=== PATIENT | female | born 1940 | race Two or more races ===

== ENCOUNTER 2023-05-20 17:26 | Inpatient (IN) | payer OTHER ==
[2023-05-20] MEDS ORDERED: LIDOCAINE 5% TOPICAL PATCH TP ONE (17:56)
[2023-05-20] MEDS ORDERED: ACETAMINOPHEN 1000 MG/100 ML BAG IVPB ONE (17:56)
[2023-05-20] MEDS ORDERED: ACETAMINOPHEN INJECTION 100 ML IVPB ONE (18:32)
[2023-05-20] MEDS ORDERED: LIDOCAINE 5% TOPICAL PATCH ONE (18:36)
[2023-05-20 18:51] LABS: INR 1.2 (0.83-1.09); PROTHROMBIN TIME (PATIENT) 13.9 SEC (9.7-13.0)
[2023-05-20 18:53] LABS: ACTIVATED PTT 29.4 SECONDS (25.2-36.5)
[2023-05-20 18:54] LABS: HEMATOCRIT 33.6 % (32.4-45.2); HEMOGLOBIN 11.1 G/dL (10.7-15.3); MCH 30.4 pg (25.7-33.7); MCHC 33.1 g/dl (32.0-36.0); MEAN CELL VOLUME 91.9 fl (80-96); MEAN PLT VOLUME 10.6 fl (7.5-11.1); RBC 3.66 10^6/uL (3.60-5.2); RDW 15.1 % (11.6-15.6); WHITE BLOOD COUNT 5.6 10^3/uL (4.0-10.8)
[2023-05-20 19:01] LABS: ALBUMIN 3.5 g/dl (3.4-5.0); BLOOD UREA NITROGEN 28.7 mg/dl (7-18); CALCIUM 9.2 mg/dl (8.5-10.1); CREATININE 1.1 mg/dl (0.6-1.3); MAGNESIUM 1.6 mg/dL (1.8-2.4); POTASSIUM 4.4 mmol/L (3.5-5.1); SGOT/AST 30.3 U/L (15-37); SGPT/ALT 22.6 U/L (7-52); TOT PROT 7.5 g/dl (6.4-8.2)
[2023-05-20] MEDS ORDERED: MAGNESIUM SULF 50% (8.12 MEQ/2 ML-1 GM VIAL) IVPB ONE (20:26)
[2023-05-20 21:29] VITALS: BMI 29.5
[2023-05-20] MEDS: ATORVASTATIN CA 20 MG TABLET (FP) PO SCH (21:55)
[2023-05-20] MEDS: LISINOPRIL 20 MG TABLET PO SCH (21:55)
[2023-05-20] MEDS ORDERED: LIDOCAINE PATCH REMOVAL MC SCH (22:00)
[2023-05-20 23:07] LABS: PLATELET ESTIMATE DECREASED
[2023-05-20] MEDS ORDERED: ACETAMINOPHEN 325 MG TABLET (FP) PO PRN (23:45)
[2023-05-21] MEDS: LEVOTHYROXINE NA 25 MCG TABLET (FP) PO SCH (06:42)
[2023-05-21] MEDS ORDERED: glipiZIDE-XL 10 MG TAB.ER.24 (FP) PO SCH (07:00)
[2023-05-21] MEDS ORDERED: ALBUTEROL SO4 2.5/IPRATROPIUM 0.5 INH SOL 3 ML VIAL.NEB. NEB SCH (08:00)
[2023-05-21 08:42] LABS: BLOOD UREA NITROGEN 24.3 mg/dl (7-18); CALCIUM 8.9 mg/dl (8.5-10.1); CREATININE 0.9 mg/dl (0.6-1.3); MAGNESIUM 1.8 mg/dL (1.8-2.4); POTASSIUM 4.5 mmol/L (3.5-5.1)
[2023-05-21] MEDS: amLODIPine BESYLATE 5 MG TABLET (FP) PO SCH (09:19)
[2023-05-21] MEDS: LISINOPRIL 20 MG TABLET PO SCH ×2 (09:19→21:09)
[2023-05-21] MEDS: HYDROCHLOROTHIAZIDE 12.5 MG CAPSULE (FP) PO SCH (09:19)
[2023-05-21] MEDS ORDERED: predniSONE 5 MG TABLET (UD) PO SCH (10:00)
[2023-05-21 11:37] LABS: BASO % 0.7 % (0-2.0); EOS % 1.1 % (0-4.5); HEMATOCRIT 32.6 % (32.4-45.2); HEMOGLOBIN 10.3 GM/dL (10.7-15.3); LYMPH % 58.5 % (8-40); MCH 28.9 pg (25.7-33.7); MCHC 31.7 g/dl (32.0-36.0); MEAN CELL VOLUME 91.1 fl (80-96); MEAN PLT VOLUME 11.5 fl (7.5-11.1); MONO % 17.9 % (3.8-10.2); NEUT % 21.8 % (42.8-82.8); PLATELET COUNT 89 10^3/uL (134-434); RBC 3.58 M/mm3 (3.60-5.2); RDW 14.8 % (11.6-15.6)
[2023-05-21] MEDS: LIDOCAINE 5% TOPICAL PATCH TP SCH (12:51)
[2023-05-21 13:27] LABS: ANISOCYTOSIS 2+; MACROCYTOSIS 0
[2023-05-21] MEDS: ATORVASTATIN CA 20 MG TABLET (FP) PO SCH (21:09)
[2023-05-21] MEDS ORDERED: LIDOCAINE PATCH REMOVAL MC SCH (22:00)
[2023-05-22] MEDS: LEVOTHYROXINE NA 25 MCG TABLET (FP) PO SCH (06:23)
[2023-05-22] MEDS ORDERED: glipiZIDE-XL 5 MG TAB.ER.24 PO SCH (07:00)
[2023-05-22 09:11] VITALS: RESP 18; TEMP 98.2
[2023-05-22] MEDS: LISINOPRIL 20 MG TABLET PO SCH (09:29)
[2023-05-22] MEDS: HYDROCHLOROTHIAZIDE 12.5 MG CAPSULE (FP) PO SCH (09:29)
[2023-05-22] MEDS: amLODIPine BESYLATE 5 MG TABLET (FP) PO SCH (09:29)
[2023-05-22] MEDS: LIDOCAINE 5% TOPICAL PATCH TP SCH (09:29)
[2023-05-22 09:52] LABS: BLOOD UREA NITROGEN 17.6 mg/dl (7-18); CALCIUM 8.8 mg/dl (8.5-10.1); CREATININE 0.8 mg/dl (0.6-1.3); MAGNESIUM 1.5 mg/dL (1.8-2.4); PHOSPHOROUS 3.26 (2.5-4.9); POTASSIUM 4.2 mmol/L (3.5-5.1)
[2023-05-22] MEDS ORDERED: ENOXAPARIN NA (PORCINE) 40 MG/0.4 ML DISP.SYRIN SQ SCH (10:00)
[2023-05-22] MEDS ORDERED: MAGNESIUM SULF 50% (8.12 MEQ/2 ML-1 GM VIAL) IVPB ONE (10:42)
[2023-05-22] MEDS ORDERED: MAGNESIUM SULFATE IN WATER 2 GM/50 ML IVPB IVPB ONE (11:00)
[2023-05-22 13:03] VITALS: BP 140/47; PULSE 72
[2023-05-22 14:42] LABS: HIV INTERPRETATION NEGATIVE (NEGATIVE)
[2023-05-23 17:07] LABS: FREE KAPPA,SERUM 73.6 mg/L (3.3-19.4)
== END 2023-05-22 16:44 | disposition home or self-care (01) | DRG 204 ==
LOC: FER 17:26 → FM/S 19:29 → OBSVTOIN 05-21 15:33
PROVIDERS: ADMIT Internal Medicine; ATTEND Internal Medicine
DX: R06.00 Dyspnea, unspecified (principal); I10 Essential (primary) hypertension; E11.9 Type 2 diabetes mellitus without complications; E03.9 Hypothyroidism, unspecified; M54.9 Dorsalgia, unspecified; D69.6 Thrombocytopenia, unspecified
CPT/HCPCS: 0241U-QW; 36415; 71045-TC-FY; 80048; 80053; 80061; 82607; 82728; 82962; 83036; 83540; 83550; 83721; 83735; 83880; 83883; 84100; 84155; 84165; 84439; 84443; 84484; 85025; 85027; 85610; 85651; 85730; 86140; 87389; 93005; 93306-TC; 94640; 94761; 97116-GP; 97162-GP; 99285-25; G0378

== ENCOUNTER 2023-10-28 18:50 | Emergency (ER) | payer OTHER ==
[2023-10-28 19:15] VITALS: BP 160/70; PULSE 77; RESP 20; TEMP 98; BMI 69.3
[2023-10-28 19:53] LABS: HEMATOCRIT 35.1 % (32.4-45.2); HEMOGLOBIN 12.1 G/dL (10.7-15.3); MCH 30.7 pg (25.7-33.7); MCHC 34.5 g/dl (32.0-36.0); MEAN CELL VOLUME 89.1 fl (80-96); MEAN PLT VOLUME 8.5 fl (7.5-11.1); PLATELET COUNT 287.8 10^3/uL (134-434); RBC 3.94 10^6/uL (3.60-5.2); RDW 13.1 % (11.6-15.6); WHITE BLOOD COUNT 12.4 10^3/uL (4.0-10.8)
[2023-10-28 20:12] LABS: PLATELET ESTIMATE ADEQUATE
[2023-10-28 20:14] LABS: ALBUMIN 4.3 g/dl (3.4-5.0); BILIRUBIN,TOTAL 0.7 mg/dl (0.2-1); CALCIUM 10.2 mg/dl (8.5-10.1); CREATININE 0.9 mg/dl (0.6-1.3); POTASSIUM 4.4 mmol/L (3.5-5.1); TOT PROT 7.5 g/dl (6.4-8.2)
[2023-10-28] MEDS ORDERED: ERYTHROMYCIN 0.5% OPHTHALMIC OINTMENT 3.5 GM TUBE ONE (20:24)
[2023-10-28] MEDS ORDERED: GENTAMICIN 0.3% OPHTHALMIC OINTMENT 3.5 GM/TUBE OD ONE (20:30)
[2023-10-28] MEDS ORDERED: predniSONE 20 MG TABLET (UD) PO ONE (20:46)
[2023-10-28] MEDS ORDERED: predniSONE 20 MG TABLET (UD) ONE (20:47)
[2023-10-29] MEDS ORDERED: ERYTHROMYCIN 0.5% OPHTHALMIC OINTMENT 3.5 GM TUBE OD SCH (10:00)
== END 2023-10-28 20:38 | disposition home or self-care (01) ==
LOC: FER 18:50
DX: R29.810 Facial weakness (principal); G51.0 Bell's palsy
CPT/HCPCS: 36415; 80053; 85027; 99283-25